=== PATIENT | male | born 1990 | race Caucasian/White ===

== ENCOUNTER 2023-03-13 10:50 | Emergency (ER) | payer BC ==
[~2023-03-13] VITALS: Wt 79.4 kg
[~2023-03-13 10:50] MED LIST: FLEXERIL10 MG PO; MOTRIN600 MG PO; VICODIN 5/500 505 MG PO
[2023-03-13] MEDS ORDERED: AMOXICILLIN500 M3 PO (11:19)
== END 2023-03-13 11:28 | disposition home or self-care (01) ==
LOC: ED 10:50
DX: K02.9 Dental caries, unspecified (principal)